=== PATIENT | male | born 1940 | race Caucasian/White ===

== ENCOUNTER 2017-05-07 16:49 | Observation (INO) ==
[2017-05-07] MEDS ORDERED: Morphine Oral CONC 5 MG/0.25 ML ORAL.SYG SL STA (17:20)
--- NOTE | 2017-05-07 17:27 | Emergency Department Note ---
Disposition Clinical Impression: Acute exacerbation of chronic obstructive airways disease, Colon cancer, Lung cancer, Metastatic cancer Disposition: Admitted As Inpatient Condition: Critical Forms: ED Satisfaction Letter Time of Disposition: 17:26 (alexis hendrix critical ) SOB HPI - General Chief Complaint: ED Shortness of Breath/Dyspnea Stated Complaint: low 02 sat, hospice pt Time Seen by Provider: 05/07/17 16:52 Source: family Mode of arrival: ambulatory Limitations: other Nursing Notes Reviewed: Yes Vital Signs Reviewed: Yes - History of Present Illness 76-year-old elderly male who is got colon cancer lung cancer who told family or he was down in the [facility] that he wanted to come home and I patient apparently was in hospice down there today though while at home family got scared wasn't sure what to do he was weak lethargic unable to move about to this pain medications earlier and there just about the size him cells of what to do they have not met with [facility] at this time because they just got appear there to be with them tomorrow patient's to weak to frail to tell what was going on Pt Subjective Complaint: shortness of breath Onset (ago): unknown Context: recent illness, other (Hospice) Severity: unable Consistency/Duration: constant, gradually worsening Improves with: nothing Worsens with: nothing Known history of: COPD, other (Multifocal cancer with metastatic disease) Associated symptoms: Reports: pain with inspiration, sense of impending doom. Denies: chest pain, fever, cough, wheezing, sputum production, orthopnea, lower extremity pain, polyuria, polydipsia, parasthesias, palpitations, hemoptysis, diaphoresis, nausea/vomiting, syncope, abdominal pain Treatment prior to arrival: oxygen Cough present: Yes Cough Description: Non-Productive, Weak, Wheezy Cough Frequency: Intermittent Sputum production: No Sputum Amount: None - Related Data Home Medications Medication Instructions Recorded Confirmed Albuterol Sulfate [Albuterol 2 puff IH Q4HR PRN 05/07/17 05/07/17 Inhaler] Calcium Polycarbophil [Fibercon] 625 mg PO BID 05/07/17 05/07/17 Famotidine [Heartburn Prevention] 20 mg PO DAILY 05/07/17 05/07/17 Gabapentin [Neurontin] 300 mg PO BID 05/07/17 05/07/17 HYDROcodone/Acet 5/325 mg [[place] 1 tab PO BID 05/07/17 05/07/17 5-325 mg] HYDROcodone/Acet 5/325 mg [[place] 1 tab PO Q4H PRN 05/07/17 05/07/17 5-325 mg] Promethazine [Phenergan] 25 mg PO Q4HR PRN 05/07/17 05/07/17 Allergies Allergy/AdvReac Type Severity Reaction Status Date / Time Penicillins [PCN] Allergy Hives Verified 05/07/17 16:52 aspirin AdvReac Vomiting Verified 05/07/17 16:52 Limitations: ROS unobtainable due to patients medical condition Past Medical History - Past Medical History Attestation: Yes The following information was validated with the patient. Source: old records reviewed, obtained from family, nursing notes reviewed Medical history: Reports: cancer, COPD, dementia Psychiatric history: Reports: no psych history - Social History Smoking Status: Former smoker Alcohol use: Reports: none Drug use: Reports: none Physical Exam - General Limitations: other (Frail 100% nonrebreather minimally responsive) General appearance: alert, lethargic, in distress, cachectic - Head Head exam: atraumatic, normocephalic, normal inspection - Eye Eye exam: Present: normal appearance, PERRL, EOMI - ENT ENT exam: normal exam, normal oropharynx, mucous membranes dry, TM's normal bilaterally, normal external ear exam - Neck Neck exam: Present: normal inspection, full ROM, trachea midline - Chest Chest inspection: Present: normal inspection, symmetric chest wall rise - Respiratory Respiratory exam: Present: accessory muscle use, prolonged expiratory phase, other (Very faint respiratory status noted) - Cardiovascular Cardiovascular exam: Present: tachycardia, normal heart sounds - Abdominal Exam Abdominal exam: Present: soft, Non-Tender, hypoactive bowel sounds. Absent: mass, hernia - Extremities Exam Extremities exam: Present: normal inspection, other (Then frail cachectic- appearing extremities poor muscle tone with almost no muscle mass noted profoundly weak almost skeletal in appearance) - Expanded Lower Extremity Exam Neurovascular/Tendon exam: Present: other Gait: not tested/not observed - Back Exam Back exam: Present: normal inspection - Neurological Exam Neurological exam: Present: alert, CN II-XII intact - Psychiatric Psychiatric exam: Present: flat affect - Skin Skin exam: Present: warm, dry, intact, normal color Course Course Narrative: Thin frail elderly male on 100% nonrebreather wearing a foam collar around his neck to help support his neck appears to be in a seated has skin tears on his bodies get some swelling of the left hand to appears to be grossly malnourished but it family does appear to be very caring for him. He has cancer and is at odds because they had no hospice to help take care of him today as result they brought into the ER spoke with Dr. Tinoco he is agreed for admission patient we transferred to medical surgical floor for management with [facility] to be called in a.m. Vital Signs Temperature 99.2 F 05/07/17 16:52 Pulse Rate 135 05/07/17 16:52 Respiratory Rate 28 05/07/17 16:52 Blood Pressure 124/60 05/07/17 16:52 O2 Sat by Pulse Oximetry 75 05/07/17 16:52 Temperature 99.2 F 05/07/17 16:52 Pulse Rate 131 05/07/17 17:20 Respiratory Rate 28 05/07/17 17:20 Blood Pressure 109/76 05/07/17 17:20 O2 Sat by Pulse Oximetry 74 05/07/17 17:20 Oxygen Delivery Oxygen Delivery Non Rebreather Mask Shortness of Breath/Dyspnea - MDM Narrative Medical decision making narrative: Muscle wasting debilitative state cancer hospice - Differential Diagnosis Likely: acute exacerbation of chronic obstructive airways disease - Medical Records Medical records reviewed: Yes I reviewed the patient's medical records. Critical Care Time Critical Care Time: Yes Total Critical Care Time: 35 Attestation: Critical care performed: 85 minutes as result of the patient showing end-stage disease processes from the COPD and cancer he appears to be significantly failing O2 sats in the 70s on 100% nonrebreather tachycardic at this time his blood pressure still being maintained condition is grave I spoke to Dr. Vidales spoke with the family he is a DNR CC paperwork is been attached Time is exclusive of separately billable procedures. Time includes: direct patient care, patient reassessment, coordination of patient care, interpretation of data (laboratory data, radiology data, and respiratory data), review of patient's medical records, medical consultation and documentation of patient care. Procedures included in critical care time: Procedures excluded from critical care time:
[2017-05-07] MEDS ORDERED: Neosporin OINT 15 GM TUBE TP ONE ×2 (17:43→17:46)
[2017-05-07] MEDS ORDERED: Naloxone 0.4 MG/ML INJ IVP PRN (17:45)
[2017-05-07] MEDS ORDERED: *HR* HYDROcodone/Acet 5/325 mg TABLET PO PRN (17:45)
[2017-05-07] MEDS ORDERED: Morphine Oral CONC 5 MG/0.25 ML ORAL.SYG SL PRN (17:45)
[2017-05-07] MEDS ORDERED: Gabapentin 300 MG CAPSULE PO SCH (21:00)
[2017-05-07 23:40] VITALS: BP 89/57
[2017-05-07] MEDS ORDERED: Albuterol 2.5 MG/3 ML NEBULIZER IH PRN (23:56)
[2017-05-08] MEDS ORDERED: Albuterol 2.5 MG/3 ML NEBULIZER ONE (00:01)
[2017-05-08] MEDS ORDERED: Famotidine 20 MG TABLET PO SCH (09:00)
--- NOTE | 2017-05-08 15:22 | Internal Med History&Physical ---
Date of Encounter: 05/08/17 Time of Encounter: 15:20 Assessment and Plan (1) Colon cancer Status: Acute Qualifiers: Colon location: unspecified part of colon Qualified Code(s): C18.9 - Malignant neoplasm of colon, unspecified Internal Medicine - H&P: HPI Chief complaint: Metastatic colon cancer Admitted From: Emergency Dept Plans for Post Hospital Care: at Medical Facility History of present illness: Mr. Baker is a 76 year old male who was brought by family to emergency room after being transferred from [facility] stating he knew he was dying from metastatic colon cancer and wished to at home in [place] rather than out of [facility]. Family confirmed hospice status and no workup was done in emergency room. He was admitted to [facility] floor observation status until hospice services could be arranged. Past Med Surg Social Fam HX - Past Medical History Medical history: cancer, COPD, dementia Psychiatric history: no psych history - Social History Smoking Status: Former smoker Alcohol use: none Drug use: none - Family History Mother History Unknown: Yes Internal Medicine - H&P: Meds Albuterol Sulfate [Albuterol Inhaler] 2 puff IH Q4HR PRN 05/07/17 [History] Calcium Polycarbophil [Fibercon] 625 mg PO BID 05/07/17 [History] Famotidine [Heartburn Prevention] 20 mg PO DAILY 05/07/17 [History] Gabapentin [Neurontin] 300 mg PO BID 05/07/17 [History] HYDROcodone/Acet 5/325 mg [[place] 5-325 mg] 1 tab PO BID 05/07/17 [History] HYDROcodone/Acet 5/325 mg [[place] 5-325 mg] 1 tab PO Q4H PRN 05/07/17 [History] Promethazine [Phenergan] 25 mg PO Q4HR PRN 05/07/17 [History] 3 Allergy/AdvReac Type Severity Reaction Status Date / Time Penicillins [PCN] Allergy Hives Verified 05/07/17 16:52 aspirin AdvReac Vomiting Verified 05/07/17 16:52 All Systems PM: A 10-system review of systems was performed and is negative for pertinent findings except as documented above in the HPI. - Constitutional Vitals: Temp Pulse Resp BP Pulse Ox 99.2 F 138 24 89/57 77 05/07/17 16:52 05/07/17 23:39 02/23/18 00:05 05/07/17 23:39 05/07/17 23:39
--- NOTE | 2017-05-08 15:24 | Discharge Summary ---
Date of Encounter: 05/08/17 Time of Encounter: 15:20 - Discharge Diagnosis (1) Colon cancer Priority: Primary Status: Acute Qualifiers: Colon location: unspecified part of colon Qualified Code(s): C18.9 - Malignant neoplasm of colon, unspecified Hospital course: Mr. Baker is a 76 year old male who was brought by family to emergency room after being transferred from [facility] stating he knew he was dying from metastatic colon cancer and wished to at home in [place] rather than out of state. Family confirmed hospice status and no workup was done in emergency room. He was admitted to [facility] floor observation status until hospice services could be arranged. Initial orders were written by the emergency room physician. [facility] Hospice consult was ordered. He continued to decline and was found without pulse or respirations at 0240 on 05/08/2017. No resuscitative efforts were done as per advance directives. - Time Spent with Patient Total time spent providing and/or coordinating discharge services: - Discharge Medications Home Medications: Albuterol Sulfate [Albuterol Inhaler] 2 puff IH Q4HR PRN 05/07/17 [History] Calcium Polycarbophil [Fibercon] 625 mg PO BID 05/07/17 [History] Famotidine [Heartburn Prevention] 20 mg PO DAILY 05/07/17 [History] Gabapentin [Neurontin] 300 mg PO BID 05/07/17 [History] HYDROcodone/Acet 5/325 mg [[place] 5-325 mg] 1 tab PO BID 05/07/17 [History] HYDROcodone/Acet 5/325 mg [[place] 5-325 mg] 1 tab PO Q4H PRN 05/07/17 [History] Promethazine [Phenergan] 25 mg PO Q4HR PRN 05/07/17 [History] Allergies/Adverse Reactions: 3 Allergy/AdvReac Type Severity Reaction Status Date / Time Penicillins [PCN] Allergy Hives Verified 05/07/17 16:52 aspirin AdvReac Vomiting Verified 05/07/17 16:52 Date of admission: 05/07/17 17:36 [facility] care physician: [facility] - Constitutional Vitals: Temp Pulse Resp BP Pulse Ox 99.2 F 138 24 89/57 77 05/07/17 16:52 05/07/17 23:39 05/08/17 00:05 05/07/17 23:39 05/07/17 23:39 - Patient Status Disposition: - Discharge Instructions Follow Up With: [facility],PCP [Primary Care Provider] - 1 week NONE,PCP [Family Provider] - 1 week
== END 2017-05-08 05:20 | disposition expired ==
LOC: INPPIK 16:49 → EMEROOPIK 16:49 → INPPIK 18:00
PROVIDERS: ADMIT Internal Medicine; ATTEND Internal Medicine